=== PATIENT | female | born 1980 | race Caucasian/White ===

== ENCOUNTER 2016-12-11 13:33 | Inpatient (IN) ==
[2016-12-29] MEDS ORDERED: FAMOTIDINE PB 20 MG/50 ML BAG IV ONE (05:42)
[2016-12-29] MEDS ORDERED: CITRIC ACID/SODIUM CITRATE 30ml PO ONE (05:42)
[2016-12-29] MEDS ORDERED: CEFAZOLIN PREMIX (MC ONLY) 2 GM/50 ML BAG IV ONE (05:42)
[2016-12-29] MEDS ORDERED: NOZIN NASAL SWAB NAS ONE (05:50)
[2016-12-29] MEDS ORDERED: NOZIN NASAL SWAB NAS SCH (06:00)
[2016-12-29 06:19] VITALS: BMI 30.9
[2016-12-29] MEDS: LR 1,000 ML IV SCH ×3 (06:31→09:40)
[2016-12-29] MEDS ORDERED: SALINE FLUSH 10ml SYRINGE ONE ×2 (07:05→07:32)
[2016-12-29] MEDS ORDERED: MORPHINE SULFATE PF 5mg/10ml INJ (Duramorph) ONE (07:06)
[2016-12-29] MEDS ORDERED: FentaNYL 100 MCG/2 ML INJECTION ONE (07:06)
[2016-12-29] MEDS ORDERED: OXYTOCIN DRIP 30 UNIT/500 ML ML IV SCH (08:00)
[2016-12-29] MEDS: D5LR 1,000 ML IV SCH ×2 (08:30→22:30)
[2016-12-29] MEDS ORDERED: NALOXONE 2 MG/2 ML INJECTION PFS IVP PRN (08:43)
--- NOTE | 2016-12-29 08:43 | Anesthesia Preoperative Report ---
Anesthesia Epidural/Spinal Rec - Date and Time Date: 12/29/16 Preoperative Diagnosis: 39 weeks scheduled Procedure: (repeat) Plan: Spinal - Vital Signs Vital Signs: Temperature 97.6 F 12/29/16 06:12 Pulse Rate 70 12/29/16 06:12 Respiratory Rate 16 12/29/16 06:12 Blood Pressure 115/78 12/29/16 06:12 Pulse Oximetry 99 12/29/16 06:12 Oxygen Delivery Method Room Air NPO since: 2300 /Para: P:2 Heart Rate: 149 - Medictaions & Allergies Inpatient Medications: Current Medications Lactated Ringer's (Lactated Ringers) 1,000 mls @ 999 mls/hr IV .Q1H1M [facility] Last Admin: 12/29/16 07:38 Dose: 999 mls/hr Oxytocin (Pitocin Drip) 30 unit in 500 mls @ 2 mls/hr IV .Q24H [facility] PRN Reason: Protocol Last Admin: 12/29/16 07:50 Dose: 2 mls/hr Isopropyl Alcohol (Nozin Nasal Swab) 1 each HOANG 0600,1400,2200 [facility] Last Admin: 12/29/16 07:10 Dose: Not Given Allergies/Adverse Reactions: Allergies Allergy/AdvReac Type Severity Reaction Status Date / Time No Known Allergies Allergy Unknown Verified 01/29/10 18:15 - Home Medications Home Medications: Home Medications Medication Instructions Recorded Confirmed Type 21/Iron Fu/Folic Acid 1 tab PO DAILY 12/28/16 12/28/16 History [ Complete Caplet] - Surgical History Anesthesia Reactions: None Hx Family Anesthesia Reaction: No History of Motion Sickness: No - Social History Second Hand Exposure: No Substance Use Type: does not use Alcohol Intake Frequency: does not drink Hx Chewing Tobacco Use: No - Pertinent Findings Lab Data: CBC and BMP 12/29/16 06:04 - Physical Exam Respiratory Exam: lungs clear Cardiovascular Exam: regular rate and rhythm - Airway Assessment Mallampati Score: II TMD: 3 Fingerbreadths Neck Extension: good Overall Assessment: no airway concerns - ASA ASA Score: 2 - Discussion Discussion: Discussed risks/options/alternatives of anesthesia and questions answered. Patient consents. Nursing pain assessment noted. Anesthesia Discussion: family member Attestation Statement: Prior to the delivery of any anesthetic medication, I examined the patient, developed the plan, obtained the patient's consent and discussed the risk and benefits of the procedure with the patient/guardian.
[2016-12-29] MEDS ORDERED: PRENATAL VITAMIN TABLET PO SCH (09:00)
[2016-12-29] MEDS ORDERED: SALINE FLUSH 10ml SYRINGE IVF PRN (09:39)
[2016-12-29] MEDS ORDERED: HYDROCORTISONE 2.5% CREAM 30gm RECTALLY PRN (09:39)
[2016-12-29] MEDS ORDERED: CALCIUM CARBONATE Chewable 500mg TABLET PO PRN (09:39)
[2016-12-29] MEDS ORDERED: ACETAMINOPHEN 500 MG TABLET PO PRN (09:39)
[2016-12-29] MEDS ORDERED: DiphenhydrAMINE 25 MG CAPSULE PO PRN (09:39)
[2016-12-29] MEDS: OXYTOCIN DRIP 30 UNIT/500 ML ML IV SCH ×2 (10:04→13:28)
[2016-12-29] MEDS: HYDROCODONE/APAP 5mg/325mg TABLET PO PRN (10:54)
[2016-12-29] MEDS: IBUPROFEN 800 MG TABLET PO SCH ×2 (10:55→16:24)
[2016-12-29] MEDS: DOCUSATE CALCIUM 240 MG CAPSULE PO SCH (10:55)
[2016-12-29] MEDS: SIMETHICONE 80 MG CHEWABLE TABLET PO SCH ×3 (10:55→22:30)
--- NOTE | 2016-12-29 11:48 | Progress Note ---
OB PP Progress Note Free Text - Date Date: 12/29/16 - Progress Note Progress Note: Pt starting to feel abdominal pain, just took [place]. AVSS Stable. Cont routine care.
--- NOTE | 2016-12-29 13:32 | Operative Note ---
DATE: 12/29/2016 PREOPERATIVE DIAGNOSIS Term , previous , declines . POSTOPERATIVE DIAGNOSIS Term , previous , declines . PROCEDURE Repeat low transverse section. Surgeon: Heather Mackey MD CUE SELECTOR: Timmy [place] Recorder Anesthesia: Combo spinal epidural by Ankit Pastor CRNA. EBL: 800 ml DESCRIPTION OF PROCEDURE Ms. Platt was brought to the OR and given regional analgesia to good effect. She was then placed in a comfortable supine position with left lateral displacement. A Patel catheter was placed to dependent drain. The abdomen was prepped and draped in the usual sterile fashion. A Pfannenstiel skin incision was made in elliptical fashion around the patient's prior incision, excising that scar. We then carried the incision down to fascia. Fascia was incised transversely. Fascia was then tented up. This was bluntly and sharply dissected free of the rectus muscles. Rectus muscles were bluntly divided. Peritoneum was tented up and entered sharply. This was then extended vertically. The bladder blade was inserted. Vesicouterine fold of peritoneum was tented up and incised transversely. A bladder flap was bluntly and sharply dissected free. The bladder blade was reinserted. A low transverse uterine incision was made with a sharp knife. This was extended bluntly. There was clear amniotic fluid. Baby was delivered in the vertex presentation. Baby was bulb suctioned on the abdomen. Cord was doubly clamped and cut and the baby was given to the Peds team for care. This was a liveborn female with Apgars of 9/9, weighing 7 pounds, 11.2 ounces. We then expressed the placenta intact. It had a normal configuration and normal-appearing three-vessel cord. The uterine cavity was swept clear of membranes and the uterus exteriorized. The myometrial incision was then reapproximated with a running locking 0-Monocryl. We inspected carefully for hemostasis. It was under good control. The uterus, tubes and ovaries were noted to be grossly normal and were returned the abdominal cavity. We then reapproximated peritoneum with a running nonlocking 2 -0 Vicryl. Fascia was reapproximated with running nonlocking 0-Vicryl. The Keith's was reapproximated with simple ligatures of 2-0 Vicryl then skin edges were reapproximated with a subcuticular style 3-0 undyed Vicryl. The wound was dressed with sterile dressings. Counts were correct postoperative x 2. The urine remained clear and free-flowing throughout the procedure. Ms. Nix was then transferred to recovery in stable condition. ROCKY
[2016-12-30] MEDS: IBUPROFEN 800 MG TABLET PO SCH ×3 (00:25→17:54)
[2016-12-30] MEDS: SIMETHICONE 80 MG CHEWABLE TABLET PO SCH ×4 (00:26→21:20)
[2016-12-30] MEDS: DOCUSATE CALCIUM 240 MG CAPSULE PO SCH (09:04)
--- NOTE | 2016-12-30 12:27 | OB/GYN Progress Note ---
OB-PP Progress Note - General PPD1 Maternal Group B Strep: Negative Maternal blood type: A+ Maternal Rubella Status: Immune - Subjective Date: 12/30/16 Lochia: Minimal Pain: contolled Voiding: voiding Nausea or Vomiting Present: No - Objective Vital Signs: Last Vital Signs Temp 98.5 F 12/30/16 08:25 Pulse 70 12/30/16 08:25 Resp 16 12/30/16 08:25 BP 115/65 12/30/16 08:25 Pulse Ox 99 12/30/16 08:25 Urine Output: good General: alert and oriented Abdomen: fundus firm, non-tender, soft, non-distended Incision: normal, dry, intact Extremities: non-tender Laboratory: Laboratory Results - last 24 hr 12/29/16 15:25 WBC 14.3 H D RBC 3.67 L Hgb 10.8 L Hct 32.1 L MCV 87.5 MCH 29.4 MCHC 33.6 RDW Std Deviation 40.4 Plt Count 148 MPV 10.3 - Assessment Assessment: Repeat C/S - Plan Plan: routine care
[2016-12-30] MEDS: SIMETHICONE 80 MG CHEWABLE TABLET PO PRN ×2 (15:51→21:20)
[2016-12-30] MEDS: HYDROCODONE/APAP 5mg/325mg TABLET PO PRN ×2 (15:52→21:37)
[2016-12-31] MEDS: SIMETHICONE 80 MG CHEWABLE TABLET PO SCH ×2 (01:04→11:18)
[2016-12-31] MEDS: IBUPROFEN 800 MG TABLET PO SCH ×2 (03:19→11:18)
[2016-12-31 03:37] VITALS: TEMP 98
[2016-12-31 07:43] VITALS: BP 99/67; PULSE 66; RESP 16; O2SAT 97
--- NOTE | 2016-12-31 09:27 | OB/GYN Progress Note ---
OB-PP Progress Note - General PPD2 - Subjective Date: 12/31/16 Lochia: Minimal Pain: contolled Voiding: voiding - Objective Vital Signs: Last Vital Signs Temp 98.0 F 12/31/16 07:42 Pulse 66 12/31/16 07:42 Resp 16 12/31/16 07:42 BP 99/67 12/31/16 07:42 Pulse Ox 97 12/31/16 07:42 Abdomen: fundus firm, non-tender, soft Incision: normal, intact Extremities: non-tender - Assessment Assessment: Repeat C/S - Plan Plan: routine care, discharge home, continue PNV
--- NOTE | 2016-12-31 09:30 | Discharge Instructions ---
Discharge Plan - Med Rec/Dispo Prescriptions: New Ibuprofen [Motrin] 800 mg PO Q8H #30 tab Hydrocodone/APAP 5/325 [[place] 5/325] 1 - 2 tab PO Q4H PRN #40 tab PRN Reason: Pain Continue 21/Iron Fu/Folic Acid [ Complete Caplet] 1 tab PO DAILY Discharge Instructions/Outpatient Orders: Final Provider Discharge Instructions Time Frame: 12/31/16, Location: Determined By Patient - Disposition 01 Discharged Home, Self-Care
[2016-12-31] MEDS: DOCUSATE CALCIUM 240 MG CAPSULE PO SCH (11:18)
== END 2016-12-31 11:32 | disposition home or self-care (01) | DRG 766 ==
LOC: MC 12-29 05:36
PROVIDERS: ADMIT Obstetrics & Gynecology; ATTEND Obstetrics & Gynecology